=== PATIENT | male | born 1985 | race Caucasian/White ===

== ENCOUNTER 2025-06-15 17:40 | Emergency (ER) | payer MEDICAID ==
[~2025-06-15] VITALS: Ht 167.6 cm; Wt 74.8 kg
[2025-06-15 17:57] VITALS: O2SAT 98
[2025-06-15] MEDS ORDERED: IBUP-1455 MT (22:33)
[2025-06-15 22:47] LABS: CLARITY URINE CLEAR (CLEAR); COLOR URINE YELLOW (YELLOW); GLUCOSE URINE NEGATIVE (NEGATIVE); KETONES URINE NEGATIVE (NEGATIVE); LEUKOCYTE ESTERASE URINE NEGATIVE (NEGATIVE); NITRITE URINE NEGATIVE (NEGATIVE); OCCULT BLOOD URINE NEGATIVE (NEGATIVE); PH URINE 6.0 (4.5-8.0); PROTEIN URINE NEGATIVE (NEGATIVE); SPECIFIC GRAVITY URINE 1.017 (1.005-1.030); UROBILINOGEN URINE 0.2 E.U./dL (0.2-1.0)
[2025-06-15 23:02] VITALS: BP 124/80; PULSE 92; RESP 14; TEMP 36.6; O2SAT 100
== END 2025-06-15 23:04 | disposition home or self-care (01) ==
LOC: ER 18:13
DX: K40.90 Unilateral inguinal hernia, without obstruction or gangrene, not specified as recurrent (principal); Z98.890 Other specified postprocedural states
CPT/HCPCS: 76870; 81003; 93976; 99284